=== PATIENT | female | born 1970 | race Caucasian/White ===

== ENCOUNTER 2024-05-22 07:01 | Emergency (ER) | payer BC, SELFPAY ==
[2024-05-22 07:12] VITALS: BP 132/82; PULSE 130; RESP 18; TEMP 36.8; O2SAT 97
--- NOTE | 2024-05-22 07:14 | EKG_ITS ---
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
--- NOTE | 2024-05-22 07:15 | XR_ITS ---
Examination: AP chest single view Technique: AP portable upright chest single view Exam date and time: May 22, 2024 0721 hrs. Indications: Shortness of breath today. Findings: Mild opacity obscuring detail left cardiac contour Right lung clear Normal heart size Impression: Recommend lateral chest follow-up to exclude early pneumonia in the lingular segment left upper lobe
--- NOTE | 2024-05-22 07:19 | EDNOTE_ITS ---
ED Allergic Reaction RME/HPI General Chief complaint: Allergic Reaction Stated complaint: SWOLLEN LIPS Time Seen by Provider: 05/22/24 07:06 Arrival date/time: 05/22/24 07:01 RME / HPI RME / HPI narrative: This section includes all my notes and documentations, including HPI, PE, and ED course.? Ernie Meléndez MD HPI: 53 year old female with no stated chronic medical history presents to the ED for evaluation of allergic reaction beginning 4 days ago and worsening at 02:00 this morning. States she has had hives for 4 days and this morning noted lip swelling. Reportedly took a Benadryl at ~ 02:15 AM with no improvement, pr ompting ED visit. Patient additionally reports her body feeling achy and coughing for 2 weeks with 1-day of fevers last week. Patient states she was evaluated at a walk-in clinic 4 days ago and was prescribed a Z-pack for a possible URI. States she already had the rash prior to starting Z-pack. Denies trying any new foods or changes to her daily life. No other complaints. Patient mentioned as a child she frequently had hives, reason unknown. States she last had hives at 33 years old. ROS: All negative except as documented in HPI. Physical Exam: General:? Alert and oriented.? No acute distress when remaining still.?? Eyes:? Conjunctivae and lids clear.? ENT:? No nasal congestion.? Pharynx normal. Patent airway. TM normal bilaterally. Lips moderately edematous. Neck:? Supple.? Heart:? RRR.? Lungs:? No respiratory distress.? Good air movement.? No rhonchi, wheezing, rales.?? Abdomen:? Soft and nontender.?? Legs:? No clubbing, cyanosis, edema.? Skin:? Warm and dry.?? Neuro:? Alert and oriented X 3.?? I reviewed all diagnostic test results. My interpretation of the EKG is?Sinus rhythm (105 bpm) with nonspecific ST-T changes. My interpretation of the chest x-ray is?no acute findings. Blood tests unremarkable. At this point, diagnoses include?allergic reaction. Treatment here included?IV fluid and Solu-Medrol and Benadryl. Significant improvement noted. Prescribed prednisone and recommended outpatient workup with information systems security specialist. Based on my best medical judgment, made decision no further evaluation or treatment indicated at this time.? Patient understands and agrees to the discharge instructions customized and printed, see below. Discharge instructions from Dr. Meléndez: 1. You were treated today for allergic reaction. 2. To help prevent the reaction going into your airways and your throat, take prednisone as prescribed. 3. And take Benadryl 50 mg every 6-8 hours today and tomorrow then as needed. 4. Increase oral fluid and maintain clear urine.? If dark or yellow, increase oral fluid.? This will help eliminate any allergens in your blood system. 5. See your private doctor on 05/23/2024 for recheck. Ask for a referral to see an information systems security specialist so you can be tested to know what to avoid in the future. 6. Seek immediate medical care with worsening, breathing difficulty, or with any concerns. Ernie Meléndez MD Related Data Previous Rx's ?Medication ?Instructions ?Recorded prednisone 20 mg tablet 40 mg PO BID 3 days #12 tabs 05/22/24 Review of Systems Review of Systems Systems Reviewed: All systems reviewed, normal except as documented Past Medical History Social History SMOKING STATUS: Never smoker ED Exam Narrative Physical exam: As noted in HPI Course Course Course Narrative: chest xray ordered to help determine etiology of cough. Quality Measures none Orders Category Date Time Status Bedside COVID-19 Antigen Test NOW Care 05/22/24 07:14 Active Bedside Influenza A&B Antigen Test NOW Care 05/22/24 07:14 Completed EKG (ED ONLY) *Do not use* NOW Care 05/22/24 07:14 Completed Saline [Insert IV] NOW Care 05/22/24 07:12 Active EKG (ED Only) Stat Exams 05/22/24 07:14 Draft XR chest 1V portable Stat Exams 05/22/24 07:15 Completed CBC Auto Diff Post-Transfusion Stat Lab 05/22/24 07:37 Completed CMP [Comprehensive Metabolic Panel] Stat Lab 05/22/24 07:37 Completed Magnesium Stat Lab 05/22/24 07:37 Completed Troponin I Stat Lab 05/22/24 07:37 Completed DiphenhydrAMINE INJ [Benadryl Inj] Med 05/22/24 07:14 Discontinued 50 mg IVP X1 ONE Famotidine Inj [Pepcid Inj] Med 05/22/24 07:14 Discontinued 20 mg IVP X1 ONE MethylPREDNISolone.* [SoluMEDROL Inj] Med 05/22/24 07:14 Discontinued 125 mg IVP X1 ONE Sodium Chloride 0.9% 1000 ml [Ns] 1,000 ml Med 05/22/24 07:13 Discontinued IV 999 mls/hr Vital Signs Vital signs: Vital Signs Temperature 98.2 F 05/22/24 07:12 Pulse Rate 130 H 05/22/24 07:12 Respiratory Rate 18 05/22/24 07:12 Blood Pressure 132/82 H 05/22/24 07:12 Pulse Oximetry (%) 97 05/22/24 07:12 Oxygen Delivery Method Room Air 05/22/24 07:12 Pulse ox is 97% on room air which is adequate. Allergic Reaction MDM Narrative MDM Narrative:: Christina Caba am scribing for and in the presence of Dr. Meléndez. Patient data External records reviewed:: [facility] previous records (Per EMR, no previous visits for review ) Clinical information provided by:: patient Social determinants that could affect healthcare access:: none Patient has the following chronic illnesses:: No chronic medical hx How is presenting disease/condition affected by chronic disease/condition?: no chronic disease Evaluation data The following diagnostics were reviewed and interpreted by me:: lab results, radiology exam(s) and EKG tracing(s) (My interpretation of the EKG is: Sinus rhythm (105 bpm) with nonspecific ST-T changes. Ernie Meléndez MD) Lab and/or radiology exams considered but not ordered:: None Interpretation Summary: Normal diagnostics Medications / Prescriptions Medications or Prescriptions considered but not ordered:: None Medication administrations:: Medication Administration History Discontinued Medications Diphenhydramine HCl (Diphenhydramine Inj 50 Mg/Ml Vial) 50 mg IVP X1 ONE Stop: 05/22/24 07:15 Last Admin: 05/22/24 07:41 Dose: 50 mg Documented By: ED Famotidine (Famotidine Inj 10 Mg/Ml Vial 2 Ml) 20 mg IVP X1 ONE Stop: 05/22/24 07:15 Last Admin: 05/22/24 07:44 Dose: 20 mg Documented By: ED Sodium Chloride (Ns) 1,000 mls @ 999 mls/hr IV .Q1H1M ONE Stop: 05/22/24 08:13 Last Infusion: 05/22/24 08:41 Dose: Infused Documented By: Admin: 05/22/24 07:40 Dose: 999 mls/hr Documented By: ED Methylprednisolone Sodium Succinate (Methylprednisolone Sod Succ 62.5 Mg/Ml 2ml Vial) 125 mg IVP X1 ONE Stop: 05/22/24 07:15 Last Admin: 05/22/24 07:47 Dose: 125 mg Documented By: ED Given IV fluids, Benadryl, Famotidine, Solumedrol Consultations Consultation(s) initiated? (list below): No Diagnosis Differential Diagnosis allergic reaction: anaphylaxis, allergic reaction, conta ct dermatitis, adverse reaction to drug, viral enanthem and urticaria Most likely diagnosis given after review of the tests above:: allergic reaction Admission Indicated Admission indicated?: not indicated Explain why admission is indicated or not indicated:: Does not meet admission criteria Admission Request Was there a request for admission?: No Disposition Plan Disposition Plan: Discharge Discharge Attestation Discharge Attestation: The patient and all family members were given an opportunity to ask questions and understood the discharge instructions. Discharge instructions specifically effects, indications for sooner follow up or return to the emergency department, and the expected course of current diagnosis. Patient condition: Stable Discharge Plan Plan Patient Disposition: HOME (Self Care) Prescriptions/Referrals Prescriptions/Med Rec: New prednisone 20 mg tablet 40 mg PO BID 3 Days Qty: 12 0RF Taper: Prednisone Taper 20 mg DAILY for 2 Days and 0 Hour 10 mg DAILY for 2 Days and 0 Hour 5 mg DAILY for 7 Days and 0 Hour Referrals: No Primary/Family,Physician [Primary Care Provider] - In 1 week Problem List Clinical Impression: Allergic reaction Patient/Caregiver Discharge Instructions Discharge Activity: activity as tolerated Education Materials: ED Allerg React Other General Ch Additional Instructions: Discharge instructions from Dr. Meléndez: 1. You were treated today for allergic reaction. 2. To help prevent the reaction going into your airways and your throat, take prednisone as prescribed. 3. And take Benadryl 50 mg every 6-8 hours today and tomorrow then as needed. 4. Increase oral fluid and maintain clear urine.? If dark or yellow, increase oral fluid.? This will help eliminate any allergens in your blood system. 5. See your private doctor on 05/23/2024 for recheck. Ask for a referral to see an information systems security specialist so you can be tested to know what to avoid in the future. 6. Seek immediate medical care with worsening, breathing difficulty, or with any concerns. Print Language: [place] Stand Alone Forms: [employer] Info., Patient Portal Info Letter
[2024-05-22 07:22] VITALS: BP 134/87; PULSE 120; RESP 20; TEMP 36.7; O2SAT 97
--- NOTE | 2024-05-22 07:25 | PC.NURSE ---
Pt. here from home to room 2, spouse at bedside, pt. states she has had a cough that started last Wednesday, pt. states she was coughing up yellow mucus, but today that has improved. Pt. states she started a Z pack on Wednesday that was given to her by a provider she saw at the clinic. Pt. states the hives to her entire body started last , pt. states she is itchy. Pt. states she did have a fever on Wednesday. Pt. states she has not changed anything in terms of adl routine and laundry soap. No s/s of distress, warm blanket and water given to pt. and spouse.
[2024-05-22] MEDS: SODIUM CHLORIDE 0.9% 1000 ML 1,000 ML 999 ML IV (07:40)
[2024-05-22] MEDS: DiphenhydrAMINE INJ 50 MG/ML VIAL IVP (07:41)
[2024-05-22] MEDS: FAMOTIDINE INJ 10 MG/ML VIAL 2 ML 20 MG IVP (07:44)
[2024-05-22] MEDS: MethylPREDNISolone SOD SUCC 62.5 MG/ML 2ML VIAL 125 MG IVP (07:47)
[2024-05-22 07:55] LABS: Basophils % (Auto) 0 % (0-2.5); Eosinophils % (Auto) 0 % (0-10); Hematocrit 38.9 % (36.0-46.0); Hemoglobin 13.7 g/dL (12.0-16.0); Immature Granulocytes % (Auto) 3 % (0-0); Immature Granulocytes Auto 0.31 Thou/mm3 (0.00-0.00); Lymphocytes # (Auto) 1.3 Thou/mm3 (1.0-4.8); Lymphocytes % (Auto) 11 % (10-50); Mean Corpuscular HGB Conc 35.2 g/dl (31.0-37.0); Mean Corpuscular Hemoglobin 29.7 pg (25.0-35.0); Mean Corpuscular Volume 84 fL (80-100); Monocytes # (Auto) 0.4 Thou/mm3 (0.0-0.8); Monocytes % (Auto) 4 % (0-12); Neutrophils # (Auto) 9.4 Thou/mm3 (1.8-7.7); Neutrophils % (Auto) 82 % (37-80); Nucleated Red Blood Cell % 0 /100 WBC (0); Platelet Count 454 Thou/mm3 (140-440); RDW Standard Deviation 38.7 fL (36.4-46.3); Red Blood Count 4.62 Miln/mm3 (4.00-5.20); White Blood Count 11.5 Thou/mm3 (3.6-11.0)
[2024-05-22 08:11] LABS: Alanine Aminotransferase 20 U/L (10-49); Albumin, Serum 4.3 gm/dL (3.5-5.0); Albumin/Globulin Ratio 1.7 (1.2-2.2); Alkaline Phosphatase 116 U/L (46-116); Anion Gap 10 (7-16); Aspartate Amino Transferase 16 U/L (0-34); BUN/Creatinine Ratio 23 Ratio (12-20); Bilirubin,Total 0.5 mg/dL (0.3-1.2); Blood Urea Nitrogen 21 mg/dL (9-23); Calcium 9.9 mg/dL (8.3-10.6); Calcium (Corrected) 9.9 mg/dL (8.5-10.1); Carbon Dioxide 22.4 mMol/L (20.0-31.0); Chloride 106 mMol/L (98-107); Creatinine (Component) 0.9 mg/dL (0.6-1.3); Globulin 2.6 gm/dL (2.3-3.5); Glucose 142 mg/dL (74-106); Magnesium 1.9 mg/dL (1.6-2.6); Osmolality,Calculated 280 (275-295); Potassium 4.2 mMol/L (3.4-5.1); Sodium 138 mMol/L (136-145); Total Protein 6.9 gm/dL (5.7-8.2); Troponin I < 0.002 ng/mL (0.0-0.045); eGFR > 60 See Note
[2024-05-22 10:02] VITALS: BP 125/82; PULSE 92
== END 2024-05-22 10:07 | disposition home or self-care (01) ==
PROVIDERS: Emergency Provider Emergency Medicine
DX: T78.40XA Allergy, unspecified, initial encounter (principal); R05.9 Cough, unspecified
CPT/HCPCS: 36415; 71045; 80053; 83735; 84484; 85025; 87400; 87811; 93005; 96361; 96374; 96375; 99284; J1200; J2919; J3490; J7030